=== PATIENT | male | born 1935 | race Caucasian/White ===

== ENCOUNTER 2019-01-04 16:31 | Emergency (ER) | payer MEDICARE ==
[2019-01-04 16:56] VITALS: BP 153/83
--- NOTE | 2019-01-04 17:24 | UC ---
Back Pain HPI - HPI Summary HPI Summary: PT reports L upper back pain near scapula that started today. cannot recall lifting something heavy or doing any repetitive movements. denies tingling/ numbness, chest pain, new sob, or mass/redness in area. worse w/ lifting his L arm, improved when he rests. reports a similar episode a few yrs back which was helped by PT. - History of Current Complaint Chief Complaint: UCBackPain Stated Complaint: BACK PAIN Time Seen by Provider: 01/04/19 17:21 Hx Obtained From: Patient Onset/Duration: Sudden Onset Pain Intensity: 10 Pain Scale Used: 0-10 Numeric Character: Sharp, Aching Aggravating Factor(s): Movement Alleviating Factor(s): Rest - Allergies/Home Medications Allergies/Adverse Reactions: Allergies Allergy/AdvReac Type Severity Reaction Status Date / Time No Known Allergies Allergy Verified 01/04/19 16:49 Home Medications: Home Medications Albuterol 2.5MG/3ML (0.083%)* [Ventolin 2.5 MG/3 ML NEB.KHOA*] 2.5 mg INH Q4H [History Confirmed 01/04/19] Budesonide/Formote 160/4.5(NF) [Symbicort 160/4.5 (NF)] 2 puff INH BID 01/04/19 [History Confirmed 01/04/19] Ipratropium HFA INHALER(NF) [Atrovent Hfa Inhaler(NF)] 2 puff INH Q6H 01/04/19 [ History Confirmed 01/04/19] Tamsulosin HCl [Flomax] 0.4 mg PO DAILY 01/04/19 [History Confirmed 01/04/19] Theophylline TAB* [Jose Dur*] 300 mg PO DAILY 01/04/19 [History Confirmed ] amLODIPine TAB* [Norvasc 5 mg TAB*] 5 mg PO DAILY 01/04/19 [History Confirmed ] guaiFENesin [Mucinex] 600 mg PO Q12HR PRN 01/04/19 [History Confirmed 01/04/19] traZODone TAB* [Desyrel TAB*] 50 mg PO BEDTIME 01/04/19 [History Confirmed 01/04] PMH/Surg Hx/FS Hx/Imm Hx Previously Healthy: Yes Respiratory History: COPD - SEVERE - Surgical History Surgical History: Yes Surgery Procedure, Year, and Place: appendectomy. hernia repair - Social History Alcohol Use: Weekly Substance Use Type: None Smoking Status (MU): Former Smoker Review of Systems All Other Systems Reviewed And Are Negative: Yes Constitutional: Positive: Negative Respiratory: Positive: Negative. Negative: Shortness Of Breath Cardiovascular: Positive: Negative Neurological: Negative: Headache, Weakness, Other - DENIES DIZZINESS Physical Exam Triage Information Reviewed: Yes Appearance: Well-Appearing Vital Signs: Initial Vital Signs Temp 98.8 F 01/04/19 16:47 Pulse 87 01/04/19 16:47 Resp 18 01/04/19 16:47 BP 153/83 01/04/19 16:47 Pulse Ox 99 01/04/19 16:47 Vital Signs Reviewed: Yes Neck: Negative: Nuchal Rigidity Respiratory: Positive: Lungs clear, Accessory muscle use - chronic w/ his severe copd, Other: - PURSE LIPPED BREATHING AND HAS o2 W/ HIM Cardiovascular Exam: Normal Musculoskeletal: Positive: Strength Intact - L arm, ROM Limited @ - L shoulder, no apprehension, Other: - somewhat tender between thoracic spine and scapula, pain reproducible Neurological: Positive: Alert Back Pain Course/Dx - Course Course Of Treatment: reproducible pain at L scapular area on upper back. xray did not demonstrate any bony abnormalities or changes in that area of the lung. thought to be bursa related. recommended incr. movement and short term nsaids. his breathign on exam appears to be chronic per family member that was w/ him. good O2. blood pressure elevated, should f/u w/ pcp. compared - Differential Dx/Diagnosis Differential Diagnosis/HQI/PQRI: Arthritis, Fracture, Strain, Sprain Provider Diagnosis: Scapulothoracic bursitis of left shoulder Discharge - Sign-Out/Discharge Documenting (check all that apply): Patient Departure All imaging exams completed and their final reports reviewed: Yes - Discharge Plan Condition: Good Disposition: HOME Patient Education Materials: Shoulder Bursitis (ED) Referrals: Yassine Garrett MD [Primary Care Provider] - Additional Instructions: Your blood pressure was elevated please follow up with your main doctor. - Billing Disposition and Condition Condition: GOOD Disposition: Home
== END 2019-01-04 18:33 | disposition home or self-care (01) ==
LOC: UCEAST 16:31
DX: M75.52 Bursitis of left shoulder (principal); J44.9 Chronic obstructive pulmonary disease, unspecified; Z87.891 Personal history of nicotine dependence
CPT/HCPCS: 99201; G0463

== ENCOUNTER 2019-01-17 08:02 | Emergency (ER) | payer MEDICARE ==
[2019-01-17] MEDS ORDERED: Aspirin 81 mg CHEW TAB* 81 MG TAB.CHEW ONE (08:16)
--- NOTE | 2019-01-17 08:16 | UC ---
[facility] General HPI - HPI Summary HPI Summary: Patient brought here by son. Son tried to get him to go to the ER last night but patient refused. Was able to convince him to go to urgent care this evening. States he developed chest pain and shortness of breath yesterday and persists today. No N/V/D. No fevers. Denies cough. No urinary symptoms. Normally he lives alone. Quit smoking 10 years ago. Substernal CP - 04/16. Son is here with him - son states he has been gasping for air c/o chest pain for the past two days. Also having some intermittent confusion. Denies any falls. Son states he is not safe to home alone and he can't take care of him. PMHx; COPD on 2L prn Meds: reviewed - History of Current Complaint Stated Complaint: SHORTNESS OF BREATHE Time Seen by Provider: 01/17/19 08:05 - Allergy/Home Medications Allergies/Adverse Reactions: Allergies Allergy/AdvReac Type Severity Reaction Status Date / Time No Known Allergies Allergy Verified 01/17/19 08:15 PMH/Surg Hx/FS Hx/Imm Hx Previously Healthy: No Cardiovascular History: Hypertension Respiratory History: COPD - Surgical History Surgical History: Yes Surgery Procedure, Year, and Place: appendectomy. hernia repair - Social History Alcohol Use: Weekly Substance Use Type: None Smoking Status (MU): Former Smoker Review of Systems All Other Systems Reviewed And Are Negative: Yes Constitutional: Positive: Negative Respiratory: Positive: Shortness Of Breath Cardiovascular: Positive: Chest Pain Physical Exam Triage Information Reviewed: Yes Appearance: Other: - mild respiratory distress Vital Signs Reviewed: Yes ENT: Positive: Normal ENT inspection Respiratory: Positive: Other: - Diminished breath sounds b/l. No wheezing. Increase in work of breathing and conversational dyspnea Cardiovascular: Positive: RRR, Other: - soft systolic murmur Abdomen Description: Positive: Nontender Musculoskeletal: Positive: Other: - trace edema Diagnostics - EKG Cardiac Rate: NL Course/Dx - Course Course Of Treatment: This is an 83 yr old with COPD on 2L who presents with two days of chest pain and shortness of breath. Assessment. Mild respiratory distress. Sats 90's on 2L's. Concern for cardiac etiology - EKG - NSR. Discussed with patient and son he needs to be transported via EMS to ER for evaluation for acute coronary syndrome. Patient agreeable. IV placed, NTG 04 mg SL and ASA 324 mg given. Sign out to Dr. Walker at [facility] given - Diagnoses Provider Diagnosis: Chest pain, Shortness of breath Discharge - Sign-Out/Discharge Documenting (check all that apply): Patient Departure All imaging exams completed and their final reports reviewed: No Studies - Discharge Plan Condition: Guarded Disposition: TRANS HIGHER LVL OF CARE FAC Referrals: Yassine Garrett MD [Primary Care Provider] - Additional Instructions: Patient going to [facility] via EMS - Billing Disposition and Condition Condition: GUARDED Disposition: Trans Higher Lvl of Care Fac
[2019-01-17] MEDS ORDERED: Nitroglycerin TAB 0.4 MG* 0.4 MG TAB ONE (08:17)
[2019-01-17] MEDS ORDERED: Aspirin TAB* 325 MG PO ONE (08:17)
[2019-01-17] MEDS ORDERED: Nitroglycerin TAB 0.4 MG* 0.4 MG TAB SL ONE (08:17)
[2019-01-17 08:25] VITALS: BP 188/80
== END 2019-01-17 08:44 | disposition short-term general hospital (02) ==
LOC: UCEAST 08:02
DX: R07.9 Chest pain, unspecified (principal); R06.02 Shortness of breath; I10 Essential (primary) hypertension; J44.9 Chronic obstructive pulmonary disease, unspecified; Z87.891 Personal history of nicotine dependence
CPT/HCPCS: 99213; A9270-GY; G0463

== ENCOUNTER 2019-01-17 08:54 | Inpatient (IN) | payer MEDICARE ==
--- NOTE | 2019-01-17 09:15 | ED ---
HPI Cardiac - HPI Summary HPI Summary: This pt is an 83 y/o male presenting to [facility] via EMS from [facility] for chest pain and SOB since yesterday. Pt describes chest pain radiating to his back. Denies fever, nausea, vomiting. Son reports pt makes gasping for air noise at baseline. Pt went to Urgent Care this morning where he had an EKG and was given Aspirin and Nitroglycerin TRAUMA COUNSELLOR. Pt was sent to the ED with labs drawn. Pt notes mild relief of chest pain after Nitroglycerin. Pt reports hx of COPD, on 2L of oxygen PRN. Denies hx of CHF. Pt is a former smoker. NKDA. - History of Current Complaint Stated Complaint: CHEST PAINS PER EMS Time Seen by Provider: 01/17/19 08:56 Hx Obtained From: Patient, Family/Plating Foreman - Son Onset/Duration: Started Hours Ago, Still Present Timing: Lasting Hours Current Severity: Moderate Pain Intensity: 6 Pain Scale Used: 0-10 Numeric Chest Pain Location: Mid Sternal Chest Pain Radiates: Yes Chest Pain Radiates To:: Back Character: Dull/Aching - Aching, Sharp/Stabbing - sharp Aggravating Factor(s): Nothing Alleviating Factor(s): Nothing Associated Signs and Symptoms: Positive: Chest Pain, Shortness of Breath. Negative: Fever, Nausea, Vomiting - Allergy/Home Medications Allergies/Adverse Reactions: Allergies Allergy/AdvReac Type Severity Reaction Status Date / Time No Known Allergies Allergy Verified 01/17/19 08:15 PMH/Surg Hx/FS Hx/Imm Hx Cardiovascular History: Reports: Hx Hypertension Denies: Hx Congestive Heart Failure, Hx Pacemaker/ICD Respiratory History: Reports: Hx Chronic Obstructive Pulmonary Disease (COPD) - Surgical History Surgery Procedure, Year, and Place: appendectomy. hernia repair Infectious Disease History: No Infectious Disease History: Denies: Traveled Outside the [place] in Last 30 Days - Family History Family History: Both parents of old age. Thyroid disease. - Social History Alcohol Use: Weekly Substance Use Type: Reports: None Hx Tobacco Use: Yes Smoking Status (MU): Former Smoker Review of Systems Negative: Fever Positive: Chest Pain Positive: Shortness Of Breath Negative: Vomiting, Nausea All Other Systems Reviewed And Are Negative: Yes Physical Exam - Summary Physical Exam Summary: GENERAL: Patient is a well-developed and nourished male. HEAD AND FACE: Normocephalic EYES: PERRLA, EOMI x 2. EARS: Hearing grossly intact. MOUTH: Oropharynx within normal limits. NECK: Supple, trachea is midline, no adenopathy, no JVD, no carotid bruit. CHEST: Symmetric, no tenderness at palpation LUNGS: Decreased air entry bilaterally. CVS: Regular rate and rhythm, S1 and S2 present, no murmurs or gallops appreciated. ABDOMEN: Soft, non-tender. Bowel sounds are normal. No abdominal abnormal pulsations. EXTREMITIES: Full ROM in all major joints, no edema, no cyanosis or clubbing. NEURO: Alert and oriented x 3. No acute neurological deficits. Speech is normal and follows commands. SKIN: Dry and warm Triage Information Reviewed: Yes Vital Signs On Initial Exam: Initial Vitals Temp Pulse Resp BP Pulse Ox 97.5 F 79 20 114/65 99 01/17/19 09:09 01/17/19 09:09 01/17/19 09:09 01/17/19 09:09 01/17/19 09:09 Vital Signs Reviewed: Yes Diagnostics - Vital Signs Vital Signs Temp Pulse Resp BP Pulse Ox 01/17/19 09:09 97.5 F 79 20 114/65 99 - Laboratory Result Diagrams: 01/17/19 08:20 01/17/19 08:20 Lab Statement: Any lab studies that have been ordered have been reviewed, and results considered in the medical decision making process. - Radiology Chest XR Radiology Interpretation Completed By: Radiologist Summary of Radiographic Findings: IMPRESSION: Hyperinflation. No active cardiopulmonary disease. Dr. Walker has reviewed this report. - EKG 0910 Cardiac Rate: NL - at 79 bpm EKG Rhythm: Sinus Rhythm Summary of EKG Findings: prolonged MD. Left axis deviation. Disposition - Course Assessment/Plan: Pt is an 83 y/o male presenting to [facility] via EMS from [facility] for chest pain and SOB since yesterday. Pt had an EKG and was given Aspirin and Nitro at Urgent Care TRAUMA COUNSELLOR. Chest XR shows hyperinflation. No active cardiopulmonary disease. Labs remarkable for INR of 1.12, total bilirubin of 1.2. In the ED course the pt was given IV fluids, Decadron, Duoneb, magnesium sulfate. Pt will be admitted. I discussed results with patient. The patient agrees with this plan. Discussed the case with Dr. Molina, hospitalist, who accepted the pt for admission. - Diagnoses Provider Diagnoses: COPD (chronic obstructive pulmonary disease), Chest pain - Physician Notifications Discussed Care Of Patient With: Priyanka Molina - hospitalist Time Discussed With Above Provider: 10:16 Instructed by Provider To: Admit As Inpatient Discharge - Sign-Out/Discharge Documenting (check all that apply): Patient Departure - Admit to [facility] Patient Received Moderate/Deep Sedation with Procedure: No - Discharge Plan Condition: Stable Disposition: ADMITTED TO [facility] - Billing Disposition and Condition Condition: STABLE Disposition: Admitted to [facility] - Attestation Statements Document Initiated by Scribe: Yes Documenting Scribe: Sharlene Alexander Provider For Whom Scribe is Documenting (Include Credential): Rowan Walker MD Scribe Attestation: Sharlene Batista scribed for Rowan Walker MD on 01/17/19 at 1648. Scribe Documentation Reviewed: Yes Provider Attestation: The documentation as recorded by the Sharlene pino accurately reflects the service I personally performed and the decisions made by Rowan davis MD Status of Scribe Document: Viewed
[2019-01-17] MEDS ORDERED: Magnesium Sulfate IV* 0.5 GM/ML 2 ML VIAL (1 GM) IVPB ONE (09:18)
[2019-01-17] MEDS ORDERED: Dexamethasone IV* 4 MG/ML 1 ML (4 MG) IV SLOW PU ONE (09:18)
[2019-01-17] MEDS ORDERED: Albuterol/Ipratropium NEB.SOL* Albuterol 2.5 MG/Ipratropium 0.5 MG 3 ML INH ONE (09:18)
[2019-01-17 09:19] LABS: ABS Basophils 0.1 10^3/ul (0-0.2); ABS Eosinophils 0.1 10^3/ul (0-0.6); ABS Lymphocytes 1.1 10^3/ul (1.0-4.8); ABS Monocytes 0.7 10^3/ul (0-0.8); ABS Neutrophils 7.4 10^3/ul (1.5-7.7); ABS Nucleated RBC 0 10^3/ul; Hematocrit 42 % (42-52); Lymphocyte % 11.4 %; Mean Corpuscular HGB Conc 34 g/dl (31-36); Mean Corpuscular Hemoglobin 30 pg (27-31); Mean Corpuscular Volume 88 fL (80-94); Mean Platelet Volume 8.2 fL (7.4-10.4); Nucleated Red Blood Cells % 0.1; Platelet Count 263 10^3/ul (150-450); Red Blood Count 4.73 10^6/ul (4.00-5.40); Red Cell Distribution Width 14 % (10.5-15); White Blood Count 9.3 10^3/ul (3.5-10.8)
[2019-01-17] MEDS ORDERED: NS 0.9% 1000 ML** 1,000 ML IV ONE (09:19)
[2019-01-17 09:35] LABS: Activated Partial Thrombo Time 30.8 seconds (26.0-36.3); Albumin 4.4 g/dL (3.2-5.2); Albumin/Globulin Ratio 1.7 (1-3); Calcium 9.8 mg/dL (8.6-10.3); EGFR Non-African American 92.5 (>60); Globulin 2.6 g/dL (2-4); INR 1.12 (0.77-1.02); Magnesium 1.9 mg/dL (1.9-2.7); Potassium 3.6 mmol/L (3.5-5.0); Total Bilirubin 1.2 mg/dL (0.2-1.0)
[2019-01-17 09:36] LABS: Troponin I 0.01 ng/mL (<0.04)
[2019-01-17] MEDS ORDERED: Magnesium Sulfate 2 GM IV* 2 GM/50 ML BAG ONE (09:54)
[2019-01-17] MEDS ORDERED: Albuterol/Ipratropium NEB.SOL* Albuterol 2.5 MG/Ipratropium 0.5 MG 3 ML INH PRN ×2 (10:24→14:18)
[2019-01-17] MEDS ORDERED: Albuterol 2.5 MG/3 ML NEB.SOL* (0.083%) INH PRN (12:29)
[2019-01-17] MEDS ORDERED: guaiFENesin ER TAB 600 MG PO PRN (12:29)
[2019-01-17] MEDS ORDERED: Albuterol/Ipratropium NEB.SOL* Albuterol 2.5 MG/Ipratropium 0.5 MG 3 ML INH SCH (13:00)
[2019-01-17] MEDS ORDERED: ED Azithromycn 500 mg/250 ml 500 MG/250 ML PREMIX.SET IVPB ONE (14:00)
--- NOTE | 2019-01-17 14:55 | HP ---
CC: Dr. Garrett; Dr. La Churchill, Pulmonology * ADMISSION HISTORY AND PHYSICAL: DATE OF ADMISSION: 01/17/19 PRIMARY CARE PROVIDER: Dr. Yassine Garrett. ATTENDING PHYSICIAN: Dr. Priyanka Mittal.* (DICTATED BY JYOTI GRANADOS, MIKE) CHIEF COMPLAINT: Shortness of breath. HISTORY OF PRESENT ILLNESS: This is a very pleasant 83-year-old male patient who presents to the emergency department after going to urgent care this morning with complaints of shortness of breath and chest pain. The patient's [id number] is at the bedside and states that her took the patient to Urgent Care this morning where he had an EKG. The patient again was complaining of chest pain and some shortness of breath. He was given aspirin and nitroglycerin and then sent to the emergency department for evaluation. Upon examination in the emergency department, the patient is persistently hypoxic. He does wear oxygen at home at night and p.r.n. However, he has been persistently hypoxic with increased work of breathing and continued chest pain. For these reasons, we have been asked to evaluate the patient for admission. PAST MEDICAL HISTORY: COPD and hypertension. PAST SURGICAL HISTORY: He had an appendectomy and hernia repair. MEDICATIONS: At home include: 1. Albuterol. 2. Guaifenesin 600 mg p.o. b.i.d. as needed. 3. Ventolin nebulizer 2.5 mg inhaled q.4 hours as needed. 4. Trazodone 50 to 150 mg p.o. at bedtime. 5. Anoro Ellipta 1 puff inhaled daily. 6. Theophylline 300 mg p.o. q.12 hours. 7. Flomax 0.4 mg p.o. daily. 8. Hydroxyzine 25 mg p.o. t.i.d. 9. Atrovent inhaler 2 puffs inhaled q.6 hours as needed. 10. Carlin 1 tab p.o. q.8 hours as needed. 11. Amlodipine 5 mg daily. 12. Symbicort inhaler 160/4.5 two puffs inhaled b.i.d. 13. ProAir RespiClick 2 puffs inhaled q.4 hours as needed. ALLERGIES: The patient has no known drug allergies. FAMILY HISTORY: Brother with an AR and mother with thyroid disease. SOCIAL HISTORY: The patient reports he was a former smoker. Denies any current tobacco abuse. Denies any illicit drug use. Does use alcohol weekly, although his [id number] says it may be more frequent than that. CODE STATUS: The patient is a full code. Healthcare proxy is his son. REVIEW OF SYSTEMS: The patient denies any fever. No fatigue or chills. He does report that his breathing is worse. He is feeling acutely short of breath and has intermittent chest pain that does not change with position, deep breath nor have any other further aggravating or alleviating factors. Denies nausea, vomiting. No abdominal pain. No urinary complaints. No further constitutional complaints. PHYSICAL EXAMINATION GENERAL: The patient is awake, alert, in mild distress. VITAL SIGNS: Blood pressure 145/73; heart rate between 84 at rest, 110 with ambulation; O2 saturation 88% on room air; 100% on 3 L nasal cannula; temperature is 97.5; respiratory rate ranging from 14 to 29, 14 at rest, 29 with ambulating. HEENT: The patient is atraumatic, normocephalic. PERRLA with nonicteric sclerae. Oral mucosa is dry. The patient is edentulous. Tongue is midline. NECK: Supple, nontender. No JVD noted. No carotid bruit auscultated. LUNGS: Severely diminished with a bilateral expiratory wheeze at the bases. He does have accessory muscle use and increased work of breathing overall. No rales or rhonchi noted. CARDIOVASCULAR: S1, S2 present. No murmurs, gallops, or rubs noted. Rate is currently mildly tachycardiac. ABDOMEN: Soft, nontender, and nondistended. Positive bowel sounds in all 4 quadrants. : Deferred. MUSCULOSKELETAL: There is no clubbing, no cyanosis, no pedal edema. He has +2 distal pulses. He has a steady gait and can ambulate unassisted. Gross motor and sensation are intact. NEUROLOGIC: He is currently grossly intact with no focal deficit. His daughter does report that he has had periods of confusion and forgetfulness at home. PSYCHIATRIC: He is cooperative and appropriate. LABORATORY DATA: WBCs 9.3, RBCs 4.73, hemoglobin 14, hematocrit 42, platelets 263. Sodium 138, potassium 3.6, chloride 98, CO2 31, BUN 12, creatinine 0.80, GFR is 92.5, glucose 96, lactic acid 1.2, calcium 9.8, magnesium 1.9, bilirubin 1.20, AST 22, ALT 20, alk phos 88. Troponin was negative at 0.01 x2. BNP is 30. Total protein 7.0, albumin 4.4, globulin 2.6, INR is 1.12. Chest x-ray dated 01/17/19 does not show any acute consolidation. There was hyperinflation and no active cardiopulmonary disease. IMPRESSION: This is an 83-year-old male patient with longstanding history of chronic obstructive pulmonary disease, oxygen dependent at home that presents to the emergency department with chest pain and increased work of breathing and respiratory distress. PLAN: The patient has been admitted to observation. DIAGNOSES: 1. Chronic obstructive pulmonary disease with acute exacerbation. The patient has already received dexamethasone in the emergency department and several nebulizers. We will continue him on DuoNebs q.4 hours, albuterol as needed, continue steroids with methylprednisolone 40 mg q.12 hours to start this evening. We will also continue him on his home inhalers and his theophylline. We will add azithromycin for antiinflammatory properties. The patient does not appear to have pneumonia, consolidation, or fever. However, he is very high risk at this point. We will also continue him on guaifenesin 1200 mg p.o. b.i.d. 2. For his history of hypertension, we will continue him on amlodipine 5 mg daily. 3. For his history of anxiety, the patient will be continued on hydroxyzine and trazodone. 4. Finally, the patient has a history of benign prostatic hypertrophy, he will be continued on his Flomax daily. We will be checking daily laboratories on him. I also think it would be warranted to ask Dr. Churchill to consult on the patient. He has not seen her in over a year and family is reporting that the patient has had increased oxygen use at home and over the past month, they have seen a steady decline in his respiratory function. 5. In terms of chest pain, it is very atypical and he does not have any history. Self reported history of coronary artery disease, however, he did receive nitroglycerin prior to arrival with some relief. At this point, I think doing an echocardiogram to evaluate left ventricular function and valves and then also placing him for a nuclear stress test tomorrow morning for baseline would be prudent. 6. Diet. The patient can have a heart-healthy diet with caffeine. He should be n.p.o. After midnight for his screening stress test tomorrow. 7. Ambulation with oxygen as tolerated. The rest of the patient's course will be determined by further diagnostics, laboratories, and any other input from other providers as warranted during this admission. TIME SPENT: Approximately 60 minutes interviewing the patient and family, developing admission plan of care. This plan of care has been discussed with Dr. Mittal who in agreement with this admission. JYOTI GRANADOS, MIKE [id number]/CPS #: [id number] [place]
[2019-01-17] MEDS ORDERED: Azithromycin IV(*) 500 MG in NS 0.9% 250 ML* 250 ML IVPB STA (15:19)
[2019-01-17] MEDS: Heparin VIAL(*) 5000 UNITS/ML VIAL (FIVE THOUSAND) SUBCUT SCH ×2 (15:32→22:16)
--- NOTE | 2019-01-17 19:57 | ECHO ---
Patient: ANTONIETA STOVER Rec#: [id number] : 1935 Date: 01/17/2019 Age: 83y Height: 185 cm / 72.8 in Weight: 82 kg / 180.7 lbs Sex: M BSA: 2.06 Room#: [facility] Admit Date#: 01/17/2019 Type: Inpatient Referring: Desi Beckwith Reading: Gladys Heck MD [employer] Associate: Francoise Vigil RDCS CC: Yassine Garrett MD Transthoracic Echocardiogram Indication: Chest pain BP: 135/112 HR: 87 Rhythm: NSR with PACs Findings History: Former smoker, COPD, HTN. Technical Comments: The study quality is fair. The study is technically limited due to the patient's history of COPD. Completed at 1530. Left Ventricle: The left ventricular chamber size is normal. Mild concentric left ventricular hypertrophy is observed. Left ventricular systolic function is at the lower limits of normal. The estimated ejection fraction is 50-55%. Abnormal left ventricular diastolic function is observed. Abnormal left ventricular diastolic filling is observed, consistent with impaired relaxation. Left Atrium: The left atrium is moderately dilated. Right Ventricle: Moderator Band present. The right ventricle is moderately dilated. The right ventricular global systolic function is mildly reduced. Right Atrium: The right atrial cavity size is normal. Aortic Valve: The aortic valve is trileaflet. The aortic valve leaflets are moderately thickened. Systolic excursion of the aortic valve cusps is reduced. There is a trace of aortic regurgitation. There is mild aortic stenosis. The mean gradient of the aortic valve is 8 mmHg. The peak instantaneous gradient of the aortic valve is 14 mmHg. The aortic valve area, by peak velocities, is calculated at 1.7 cm2. The aortic valve area, by VTI's, is calculated at 1.3 cm2. Mitral Valve: There is mitral annular calcification. The mitral valve leaflets are mildly thickened. There is trace to mild mitral regurgitation. There is borderline mitral stenosis. Tricuspid Valve: The tricuspid valve leaflets are normal. There is mild tricuspid regurgitation. The right ventricular systolic pressure is estimated at 22 mmHg. There is evidence that pulmonary hypertension may be underestimated. There is no tricuspid stenosis. Pulmonic Valve: The pulmonic valve appears normal. There is mild to moderate pulmonic regurgitation. based on subcostal images. There is no pulmonic stenosis. Pericardium: There is no significant pericardial effusion. Aorta: There is no dilatation of the ascending aorta. There is no dilatation of the aortic arch. The aortic root is normal in size. Pulmonary Artery: The main pulmonary artery appears normal. Venous: The inferior vena cava appears normal in size. There is a greater than 50% respiratory change in the inferior vena cava dimension. Conclusions The study quality is fair, technically limited due to the patient's history of COPD. Mild concentric left ventricular hypertrophy is observed. Normal global wall motion. The estimated ejection fraction is 50-55%. Abnormal left ventricular diastolic filling is observed, consistent with impaired relaxation. The right ventricle is moderately dilated. The right ventricular global systolic function is mildly reduced. There is a trace of aortic regurgitation. There is mild aortic stenosis. The mean gradient of the aortic valve is 8 mmHg. DI 0.42. The aortic valve area, by peak velocities, is calculated at 1.7 cm2, by VTI's is calculated at 1.3 cm2. There is trace to mild mitral regurgitation. MAC with borderline mitral stenosis. There is mild tricuspid regurgitation. The right ventricular systolic pressure is estimated at 22 mmHg, may be underestimated. There is mild to moderate pulmonic regurgitation based on subcostal images. No prior echo to compare available. Measurements Name Value Normal Range RVIDd (AP) 2D 3.2 cm (0.9 - 2.6) RVDdMajor (2D) 5.7 cm (2.2 - 4.4) RAd ISD 4CH 4.9 cm (3.4 - 4.9) RA (A4C)W 3.6 cm (2.9 - 4.6) IVSd (2D) 1.1 cm (0.6 - 1) LVPWd (2D) 1.1 cm (0.6 - 1) LVIDd (2D) 4 cm (3.6 - 5.4) LVIDs (2D) 3.6 cm - Aortic Annulus 1.9 cm (1.4 - 2.6) Ao root diameter (2D) 3.4 cm (2.1 - 3.5) Ascending Ao 3.3 cm (2.1 - 3.4) Aortic arch 2.6 cm (1.8 - 3.4) LA dimension (AP) 2D 4.1 cm (2.3 - 3.8) LAd ISD 4CH 4.5 cm (2.9 - 5.3) LA ISD 4CH W 4.4 cm (2.5 - 4.5) Name Value Normal Range LA ESV BP (A/L) index 42 ml/m2 - Name Value Normal Range MV E-wave Vmax 0.8 m/sec - MV deceleration time 250 msec - MV A-wave Vmax 1.2 m/sec - MV E:A ratio 0.6 ratio - LV septal e' Vmax 0.09 m/sec - LV lateral e' Vmax 0.08 m/sec - LV E:e' septal ratio 8.9 ratio - LV E:e' lateral ratio 10 ratio - Name Value Normal Range AV Vmax 1.9 m/sec - AV VTI 49 cm - AV peak gradient 14 mmHg - AV mean gradient 8 mmHg - LVOT diameter 2 cm - LVOT Vmax 1 m/sec - LVOT VTI 21 cm - LVOT peak gradient 4 mmHg - LVOT mean gradient 2 mmHg - DOI (VTI) 0.42 ratio - LYUBOV (continuity Vmax) 1.7 cm2 - LYUBOV (continuity VTI) 1.3 cm2 - NATALIYA Vmax 0.6 m/sec - Name Value Normal Range MV Vmax 1.4 m/sec - MV VTI 34 cm - MV peak gradient 8 mmHg - MV mean gradient 3 mmHg - MV PHT 106 msec - MVA (PHT) 2.1 cm2 - MVA (continuity VTI) 2 cm2 - Name Value Normal Range TR Vmax 2.2 m/sec - TR peak gradient 19 mmHg - RAP 3 mmHg - RVSP 22 mmHg - IVC diameter 2 cm - Name Value Normal Range PV Vmax 1.1 m/sec - PV peak gradient 5 mmHg -
[2019-01-17] MEDS: Mometasone/Formoter 200/5 MDI INH SCH (19:58)
[2019-01-17] MEDS: traZODone TAB* 50 MG TAB PO SCH (20:04)
[2019-01-17] MEDS: hydrOXYzine HCL TAB* 25 MG PO PRN (20:04)
[2019-01-17] MEDS: HYDROcodone/ACETAMIN 5-325 MG* 1 TAB PO PRN (20:05)
[2019-01-17] MEDS: guaiFENesin ER TAB 600 MG PO SCH (20:05)
[2019-01-17] MEDS: Theophylline TAB* 300 MG PO SCH (20:07)
[2019-01-17] MEDS: methylPREDNISolone SOD 40 MG* 1 ML VIAL IV SCH (20:08)
--- NOTE | 2019-01-17 20:32 | CONS ---
PULMONARY CONSULTATION REPORT: DATE OF CONSULT: 01/17/19 CONSULTATION REQUESTED BY: Desi Gordillo NP REASON FOR CONSULT: Evaluation of shortness of breath. HISTORY OF PRESENT ILLNESS: The patient is an 83-year-old male with history of COPD, history of degenerative disk disease, hypertension, who presents for evaluation of worsening shortness of breath and chest pain. The patient has been having worsening back pain recently. He has been taking Tylenol without much relief. Pain has significantly worsened and started affecting his breathing. The patient started having pain radiating to the front of the chest associated with shortness of breath. The patient was taken to the urgent care, had an EKG and subsequently was sent to the emergency room for further evaluation. The patient was found to be hypoxemic in the emergency room and was placed on supplemental oxygen. He normally wears oxygen at night at home and also as needed during the day. Given persistent hypoxemia and increased work of breathing and continued chest pain, he was admitted for further evaluation. The patient reports still continuing to have significant back pain. He has chronic back pain from degenerative disk disease; however, reports that this has been pretty worse now. The patient reports improvement in his breathing since the nebulizer and also with oxygen. The patient denies recent sick contacts. The patient denies fevers, chills, night sweats, loss of weight or appetite. Further evaluation included chest x-ray, which was personally reviewed by me - no evidence of acute airspace opacities. Evidence of significant hyperinflation was noted. PAST MEDICAL HISTORY: 1. COPD, on home O2. 2. Hypertension. 3. Degenerative disk disease. PAST SURGICAL HISTORY: 1. Appendectomy. 2. Hernia repair. MEDICATIONS: 1. Albuterol. 2. Guaifenesin. 3. Ventolin. 4. Trazodone. 5. Anoro. 6. Theophylline. 7. Flomax. 8. Hydroxyzine. 9. Atrovent. 10. Martin. 11. Amlodipine. 12. Symbicort. 13. ProAir. ALLERGIES: No known drug allergies. FAMILY HISTORY: Brother with ME and mother with thyroid disease. SOCIAL HISTORY: Former smoker. Denies current tobacco abuse, denies illicit drug abuse. Does use alcohol frequently. REVIEW OF SYSTEMS: All 14-systems reviewed as per HPI. PHYSICAL EXAM: The patient in mild distress secondary to pain, also is tachypneic. Vital Signs: Temperature 97.1, pulse 100 per minute, respiratory rate 16 per minute, O2 sat 100% on 2 L, blood pressure 152/62. HEENT: Pupils are equal and reactive to light. Mucous membranes moist. Lungs: Diminished air entry. No significant wheeze on auscultation. Cardiovascular: S1, S2 present, regular. Abdomen: Soft, nontender, nondistended. Bowel sounds present. Extremities: Normal range of motion. No edema. Skin: No rash or bruises. Neuro: Alert, awake, oriented x3. No focal deficits. DIAGNOSTIC STUDIES/LAB DATA: WBC count 9.3, hemoglobin 14, hematocrit 42, platelet count 263. Sodium 138, potassium 3.6, chloride 98, bicarb 31, BUN 12, creatinine 0.8. Troponins x3 negative. Chest x-ray performed on admission was personally reviewed by me. No evidence of hyperinflation with no acute airspace opacities. IMPRESSION/RECOMMENDATIONS: 83-year-old male with severe chronic obstructive pulmonary disease, on last PFT in August 2018 was found to have severe chronic obstructive pulmonary disease with FEV1 at 30% predicted and also severely decreased diffusion capacity at less than 20%. The patient with chronic degenerative disk disease with back pain that started to radiate and was significantly worse. He subsequently also started having shortness of breath. I think he was in mild chronic obstructive pulmonary disease exacerbation at this time. He does have diminished air entry which is at baseline for him. Does not have much wheeze on auscultation. Most likely cause for his worsening shortness of breath is due to significant pain. I do not think this is cardiac in nature. His T-bili is slightly elevated. I think he is a little bit decompensated given poor reserve at baseline; however, I do not suspect any cardiac etiology of the chest pain. However, given his risk factors, he is scheduled to have a stress test tomorrow. I would recommend optimal pain control, incentive spirometry and continue with nebulizers. Given his severe chronic obstructive pulmonary disease, he would require oxygen at baseline. He is however saturating 100% on 2 L. Does report symptomatic benefit. Can continue with current management. Will reassess in the morning. Thank you for allowing me to participate in the care of your patient. Will follow up with you. [id number]/[facility] #: [id number] [place]
[2019-01-18] MEDS: Melatonin 3 MG TAB PO PRN ×2 (03:29→21:28)
[2019-01-18] MEDS: Heparin VIAL(*) 5000 UNITS/ML VIAL (FIVE THOUSAND) SUBCUT SCH ×3 (05:19→21:30)
[2019-01-18 06:37] LABS: ABS Basophils 0 10^3/ul (0-0.2); ABS Eosinophils 0 10^3/ul (0-0.6); ABS Lymphocytes 0.8 10^3/ul (1.0-4.8); ABS Monocytes 0.4 10^3/ul (0-0.8); ABS Neutrophils 5.4 10^3/ul (1.5-7.7); ABS Nucleated RBC 0 10^3/ul; Eosinophil % 0 %; Hematocrit 37 % (42-52); Hemoglobin 12.3 g/dl (14.0-18.0); Lymphocyte % 12.2 %; Mean Corpuscular HGB Conc 34 g/dl (31-36); Mean Corpuscular Hemoglobin 29 pg (27-31); Mean Corpuscular Volume 87 fL (80-94); Nucleated Red Blood Cells % 0; Platelet Count 238 10^3/ul (150-450); Red Cell Distribution Width 14 % (10.5-15); White Blood Count 6.6 10^3/ul (3.5-10.8)
[2019-01-18 06:57] LABS: BUN/Creatinine Ratio 21.1 (8-20); EGFR African American 128.5 (>60); EGFR Non-African American 106.2 (>60); Potassium 4.4 mmol/L (3.5-5.0)
[2019-01-18] MEDS: methylPREDNISolone SOD 40 MG* 1 ML VIAL IV SCH (07:28)
[2019-01-18] MEDS: guaiFENesin ER TAB 600 MG PO SCH ×2 (07:28→21:28)
[2019-01-18] MEDS: Theophylline TAB* 300 MG PO SCH ×2 (07:29→21:27)
[2019-01-18] MEDS ORDERED: Aminophylline IV* 25 MG/ML 10 ML VIAL ONE (08:08)
[2019-01-18] MEDS ORDERED: Regadenoson* 0.4 MG/5 ML SYRINGE ONE (08:08)
[2019-01-18] MEDS ORDERED: Tamsulosin CAP* 0.4 MG PO SCH (09:00)
[2019-01-18] MEDS: Mometasone/Formoter 200/5 MDI INH SCH ×2 (09:18→21:15)
[2019-01-18] MEDS: NF:Umeclidin/Vilant 62.5 MDI 62.5/25 mcg 14 INH ELLIPTA DEVICE INH SCH (11:13)
--- NOTE | 2019-01-18 12:13 | PN ---
Subjective Date of Service: 01/18/19 Interval History: Spoke with pt and [id number]. Pt has had weakness and difficulty ambulating since Tuesday night, as well as SOB and chest pain. Currently, he denies CP, fever, abd pain. He denies SOB and states that he feels he is back to his baseline, although he has not ambulated yet. Pt is on home O2 at 2L day and night. Echo revealed diastolic dysfunction without evidence of HF; BNP was 30. Stress test revealed low risk. Objective Active Medications: Hydrocodone Bitart/Acetaminophen ([place] 5-325 Tab*) 1 tab PO Q8H PRN Albuterol (Ventolin 2.5 Mg/3 Ml Neb.Marisela*) 2.5 mg INH Q4H PRN Albuterol/Ipratropium (Duoneb (Albuterol 2.5 Mg/Ipratropium 0.5 Mg)) 1 neb INH [id number] AWAKE PRN Amlodipine Besylate (Norvasc Tab*) 5 mg PO DAILY [facility] Azithromycin (Zithromax Tab*) 500 mg PO DAILY [facility] Guaifenesin (Mucinex*) 1,200 mg PO BID [facility] Heparin Sodium (Porcine) (Heparin Vial(*)) 5,000 units SUBCUT Q8HR [facility] Hydroxyzine HCl (Atarax Tab*) 25 mg PO TID PRN Melatonin (Melatonin) 3 mg PO BEDTIME PRN Methylprednisolone Sodium Succinate (Solu-Medrol 40 Mg) 40 mg IV Q12H [place] Mometasone Furoate/Formoterol Fumar (Dulera 200/5 Mdi*) 2 puff INH BID [facility]; Protocol Tamsulosin HCl (Flomax Cap*) 0.4 mg PO DAILY [facility] Theophylline (Jose Dur*) 300 mg PO Q12HR [facility] Trazodone HCl (Desyrel Tab*) 50 mg PO BEDTIME [facility] Umeclidinium/Vilanterol (Anoro 62.5/25 Ellipta Device (Nf)) 1 inh INH DAILY [facility] Vital Signs: Temp Pulse Resp BP Pulse Ox 98.0 F 76 16 132/62 100 01/18/19 11:29 01/18/19 11:29 01/18/19 11:29 01/18/19 11:29 01/18/19 11:29 Oxygen Devices in Use Now: Nasal Cannula Appearance: Pt is sitting up in bed and appears in no acuted distress. Breathing is nonlabored. Eyes: No Scleral Icterus, PERRLA Ears/Nose/Mouth/Throat: NL Teeth, Lips, Gums, Clear Oropharnyx, Mucous Membranes Moist Neck: NL Appearance and Movements; NL JVP, Trachea Midline Respiratory: Symmetrical Chest Expansion and Respiratory Effort, - - Lung sounds decreased throughout b/l; no wheeze, rhonchi, rales Cardiovascular: NL Sounds; No Murmurs; No JVD, RRR, No Edema Abdominal: NL Sounds; No Tenderness; No Distention, No Hepatosplenomegaly Extremities: No Edema, No Clubbing, Cyanosis Neurological: Alert and Oriented x 3, NL Muscle Strength and Tone Result Diagrams: 01/18/19 06:05 01/18/19 06:05 Assess/Plan/Problems-Billing Assessment: Pt is an 83yom with PMHx COPD, HTN, DDD, BPH who presents with CP, SOB and was found to be in COPD exacerbation. - Patient Problems (1) COPD exacerbation Comment: -Decreased breath sounds throughout, without wheeze -Continue azithro, steroids (solu-medrol 40 q12h), nebs, flutter valve -Incentive spirometry (2) Weakness Comment: -Pt c/o difficulty with ambulation and feelings of weakness; strength in UE, LE 5/5 b/l -Up with assistance -PT/OT eval today (3) Chest pain Comment: -No CP today -Echo: EF 50-55%, LVH, diastolic dysfunction -Stress test: Low risk; no evidence of ischemia EKG portion (4) Hypertension Comment: -Continue amlodipine (5) Degenerative disc disease Comment: -Continue pain management (6) DVT prophylaxis Comment: -Heparin SQ (7) Full code status Status and Disposition: Observation. Discharge when stable.
[2019-01-18] MEDS: amLODIPine TAB* 5 MG PO SCH (12:42)
[2019-01-18] MEDS: Azithromycin TAB* 250 MG PO SCH (13:27)
--- NOTE | 2019-01-18 17:59 | PN ---
Progress Note - Progress Note Date of Service: 01/18/19 - Pulm f/u note Note: Pt seen and examined at bedside. Pt sitting up in chair. Reports improvement in SOB and back pain. Active Medications Generic Name Dose Route Start Last Admin Trade Name Freq PRN Reason Stop Dose Admin Hydrocodone Bitart/Acetaminophen 1 tab 01/17/19 12:29 01/17/19 20:05 [place] 5-325 Tab* PO 1 tab Q8H PRN Administration PAIN Albuterol 2.5 mg 01/17/19 12:29 Ventolin 2.5 Mg/3 Ml Neb.Marisela* INH Q4H PRN SHORTNESS OF BREATH Albuterol/Ipratropium 1 neb 01/17/19 14:18 Duoneb (Albuterol 2.5 Mg/Ipratropium 0.5 Mg) INH [id number] AWAKE PRN SOB/WHEEZING Amlodipine Besylate 5 mg 01/18/19 09:00 01/18/19 12:42 Norvasc Tab* PO Not Given DAILY [facility] Azithromycin 500 mg 01/18/19 13:00 01/18/19 13:27 Zithromax Tab* PO 500 mg DAILY [facility] Administration Guaifenesin 1,200 mg 01/17/19 21:00 01/18/19 07:28 Mucinex* PO 1,200 mg BID [facility] Administration Heparin Sodium (Porcine) 5,000 units 01/17/19 14:00 01/18/19 13:28 Heparin Vial(*) SUBCUT 5,000 units Q8HR [facility] Administration Hydroxyzine HCl 25 mg 01/17/19 12:29 01/17/19 20:04 Atarax Tab* PO 25 mg TID PRN Administration ANXIETY Melatonin 3 mg 01/18/19 00:54 01/18/19 03:29 Melatonin PO 3 mg BEDTIME PRN Administration SLEEP Methylprednisolone Sodium Succinate 40 mg 01/17/19 21:00 01/18/19 07:28 Solu-Medrol 40 Mg IV 40 mg Q12H [facility] Administration Mometasone Furoate/Formoterol Fumar 2 puff 01/17/19 21:00 01/18/19 09:18 Dulera 200/5 Mdi* INH Not Given BID [facility] Protocol Tamsulosin HCl 0.4 mg 01/18/19 09:00 01/18/19 07:28 Flomax Cap* PO 0.4 mg DAILY [facility] Administration Theophylline 300 mg 01/17/19 21:00 01/18/19 07:29 Jose Dur* PO 300 mg Q12HR [facility] Administration Trazodone HCl 50 mg 01/17/19 21:00 01/17/19 20:04 Desyrel Tab* PO 50 mg BEDTIME [facility] Administration Umeclidinium/Vilanterol 1 inh 01/18/19 09:00 01/18/19 11:13 Anoro 62.5/25 Ellipta Device (Nf) INH Not Given DAILY [facility] Vital Signs Temp Pulse Resp BP Pulse Ox 98.0 F 76 16 132/62 100 01/18/19 11:29 01/18/19 11:29 01/18/19 11:29 01/18/19 11:29 01/18/19 11:29 O/E: Pt in NAD HEENT: PERRLA, no JVD Lungs: Diminished air entry b/l CVS: S1, S2+, regular Abd: Soft, BS+ Ext: Normal ROM Skin: No rash Neuro: no focal deficits Laboratory Results - last 24 hr 01/18/19 01/18/19 06:05 06:05 WBC 6.6 RBC 4.20 Hgb 12.3 L Hct 37 L MCV 87 MCH 29 MCHC 34 RDW 14 Plt Count 238 MPV 8.0 Neut % (Auto) 81.3 Lymph % (Auto) 12.2 Hind[place] % (Auto) 6.4 Eos % (Auto) 0 Baso % (Auto) 0.1 Absolute Neuts (auto) 5.4 Absolute Lymphs (auto) 0.8 L Absolute Monos (auto) 0.4 Absolute Eos (auto) 0 Absolute Basos (auto) 0 Absolute Nucleated RBC 0 Nucleated RBC % 0 Sodium 139 Potassium 4.4 Chloride 103 Carbon Dioxide 32 Anion Gap 4 BUN 15 Creatinine 0.71 Est GFR ( Amer) 128.5 Est GFR (Non-Af Amer) 106.2 BUN/Creatinine Ratio 21.1 H Glucose 102 H Calcium 9.0 I/R; 83yom with PMHx COPD, HTN, DDD, BPH who presents with CP, SOB and was found to be in COPD exacerbation. Pt reprots improvement in sx today O2 requirements have decreased Will need to assess O2 requirements prior to d/c Pain mx for back pain c/w bronchodilators c/w steroid taper OOB to chair as tolerated PT/OT
[2019-01-18] MEDS ORDERED: NS 0.9% 1000 ML** 1,000 ML IV SCH (20:00)
[2019-01-18] MEDS: HYDROcodone/ACETAMIN 5-325 MG* 1 TAB PO PRN (20:00)
[2019-01-18] MEDS: traZODone TAB* 50 MG TAB PO SCH (21:28)
[2019-01-18] MEDS: hydrOXYzine HCL TAB* 25 MG PO PRN (21:28)
[2019-01-19] MEDS: Heparin VIAL(*) 5000 UNITS/ML VIAL (FIVE THOUSAND) SUBCUT SCH ×3 (05:04→21:53)
[2019-01-19 06:26] LABS: ABS Basophils 0 10^3/ul (0-0.2); ABS Eosinophils 0 10^3/ul (0-0.6); ABS Lymphocytes 0.6 10^3/ul (1.0-4.8); ABS Monocytes 0.3 10^3/ul (0-0.8); ABS Neutrophils 9.4 10^3/ul (1.5-7.7); ABS Nucleated RBC 0 10^3/ul; Eosinophil % 0 %; Hematocrit 38 % (36-46); Hemoglobin 13.1 g/dL (14.0-18.0); Lymphocyte % 6.1 %; Mean Corpuscular HGB Conc 34 g/dL (31-36); Mean Corpuscular Hemoglobin 30 pg (27-31); Mean Corpuscular Volume 87 fL (80-94); Nucleated Red Blood Cells % 0.1; Platelet Count 250 10^3/uL (150-450); Red Blood Count 4.41 10^6 /uL (4.18-5.48); Red Cell Distribution Width 14 % (10.5-15); White Blood Count 10.3 10^3/uL (3.5-10.8)
[2019-01-19 06:42] LABS: BUN/Creatinine Ratio 24.7 (8-20); Calcium 8.8 mg/dL (8.6-10.3); EGFR African American 124.5 (>60); EGFR Non-African American 102.9 (>60)
[2019-01-19] MEDS: Azithromycin TAB* 250 MG PO SCH (08:55)
[2019-01-19] MEDS: Theophylline TAB* 300 MG PO SCH ×2 (08:55→21:54)
[2019-01-19] MEDS: guaiFENesin ER TAB 600 MG PO SCH ×2 (08:55→21:54)
[2019-01-19] MEDS: NF:Umeclidin/Vilant 62.5 MDI 62.5/25 mcg 14 INH ELLIPTA DEVICE INH SCH (08:56)
[2019-01-19] MEDS: amLODIPine TAB* 5 MG PO SCH (08:56)
[2019-01-19] MEDS: methylPREDNISolone SOD 40 MG* 1 ML VIAL IV SCH ×3 (08:56→21:54)
[2019-01-19] MEDS: Mometasone/Formoter 200/5 MDI INH SCH ×2 (09:26→20:50)
--- NOTE | 2019-01-19 18:27 | PN ---
Subjective Date of Service: 01/19/19 Interval History: Resting in recliner. Patient requesting discharge. Continues to have mild shortness of breath, but reports he feels improved. Denies cp, palpitations, nausea, vomiting, diarrhea. Objective Active Medications: Hydrocodone Bitart/Acetaminophen ([place] 5-325 Tab*) 1 tab PO Q8H PRN PRN Reason: PAIN Last Admin: 01/18/19 20:00 Dose: 1 tab Albuterol (Ventolin 2.5 Mg/3 Ml Neb.Marisela*) 2.5 mg INH Q4H PRN PRN Reason: SHORTNESS OF BREATH Albuterol/Ipratropium (Duoneb (Albuterol 2.5 Mg/Ipratropium 0.5 Mg)) 1 neb INH [id number] AWAKE PRN PRN Reason: SOB/WHEEZING Amlodipine Besylate (Norvasc Tab*) 5 mg PO DAILY [facility] Last Admin: 01/19/19 08:56 Dose: 5 mg Azithromycin (Zithromax Tab*) 500 mg PO DAILY [facility] Last Admin: 01/19/19 08:55 Dose: 500 mg Guaifenesin (Mucinex*) 1,200 mg PO BID [facility] Last Admin: 01/19/19 08:55 Dose: 1,200 mg Heparin Sodium (Porcine) (Heparin Vial(*)) 5,000 units SUBCUT Q8HR [facility] Last Admin: 01/19/19 15:42 Dose: Not Given Hydroxyzine HCl (Atarax Tab*) 25 mg PO TID PRN PRN Reason: ANXIETY Last Admin: 01/18/19 21:28 Dose: 25 mg Sodium Chloride (Ns 0.9% 1000 Ml) 1,000 mls @ 75 mls/hr IV PER RATE [facility] Last Admin: 01/19/19 00:02 Dose: 75 mls/hr Melatonin (Melatonin) 3 mg PO BEDTIME PRN PRN Reason: SLEEP Last Admin: 01/18/19 21:28 Dose: 3 mg Methylprednisolone Sodium Succinate (Solu-Medrol 40 Mg) 40 mg IV Q12H [facility] Stop: 01/19/19 22:00 Last Admin: 01/19/19 08:56 Dose: 40 mg Mometasone Furoate/Formoterol Fumar (Dulera 200/5 Mdi*) 2 puff INH BID [facility]; Protocol Last Admin: 01/19/19 09:26 Dose: 2 puff Prednisone (Deltasone Tab*) 60 mg PO DAILY [facility] Tamsulosin HCl (Flomax Cap*) 0.4 mg PO BEDTIME [facility] Theophylline (Jose Dur*) 300 mg PO Q12HR [facility] Last Admin: 01/19/19 08:55 Dose: 300 mg Trazodone HCl (Desyrel Tab*) 50 mg PO BEDTIME [facility] Last Admin: 01/18/19 21:28 Dose: 50 mg Umeclidinium/Vilanterol (Anoro 62.5/25 Ellipta Device (Nf)) 1 inh INH DAILY [facility] Last Admin: 01/19/19 08:56 Dose: Not Given Vital Signs - 8 hr 01/19/19 01/19/19 11:05 15:32 Temperature 98.0 F 98.1 F Pulse Rate 86 95 Respiratory 20 20 Rate Blood Pressure 115/85 161/76 (mmHg) O2 Sat by Pulse 97 99 Oximetry Oxygen Devices in Use Now: Nasal Cannula Appearance: Comfortable Eyes: No Scleral Icterus Ears/Nose/Mouth/Throat: Clear Oropharnyx, Mucous Membranes Moist Neck: NL Appearance and Movements; NL JVP Respiratory: Symmetrical Chest Expansion and Respiratory Effort - Decreased aertion. Otherwise clear Cardiovascular: NL Sounds; No Murmurs; No JVD, RRR, No Edema Abdominal: NL Sounds; No Tenderness; No Distention Lymphatic: No Cervical Adenopathy Extremities: No Clubbing, Cyanosis Skin: No Rash or Ulcers Neurological: Alert and Oriented x 3 Nutrition: Taking PO's Result Diagrams: 01/19/19 06:03 01/19/19 06:03 Additional Lab and Data: Laboratory Results - last 24 hr 01/19/19 01/19/19 06:03 06:03 WBC 10.3 RBC 4.41 Hgb 13.1 L Hct 38 MCV 87 MCH 30 MCHC 34 RDW 14 Plt Count 250 MPV 8.0 Neut % (Auto) 91.0 Lymph % (Auto) 6.1 [place] % (Auto) 2.8 Eos % (Auto) 0 Baso % (Auto) 0.1 Absolute Neuts (auto) 9.4 H Absolute Lymphs (auto) 0.6 L Absolute Monos (auto) 0.3 Absolute Eos (auto) 0 Absolute Basos (auto) 0 Absolute Nucleated RBC 0 Nucleated RBC % 0.1 Sodium 136 Potassium 4.0 Chloride 101 Carbon Dioxide 29 Anion Gap 6 BUN 18 Creatinine 0.73 Est GFR ( Amer) 124.5 Est GFR (Non-Af Amer) 102.9 BUN/Creatinine Ratio 24.7 H Glucose 132 H Calcium 8.8 Microbiology and Other Data: . Assess/Plan/Problems-Billing Assessment: Pt is an 83yom with PMHx COPD, HTN, DDD, BPH who presents with CP, SOB and was found to be in COPD exacerbation. - Patient Problems (1) COPD exacerbation Comment: -Decreased breath sounds throughout, without wheeze -Continue azithro, steroids (solu-medrol 40 q12h changed to Prednisone 60 mg PO) , nebs, flutter valve -Incentive spirometry - Patient reports he only uses O2 at night, therefore, ambulatory O2 ordered. - Overnight pulse ox ordered also. (2) Chest pain Comment: -No CP today -Echo: EF 50-55%, LVH, diastolic dysfunction -Stress test: Low risk; no evidence of ischemia EKG portion (3) Full code status Current Visit: Yes Status: Acute Code(s): Z78.9 - OTHER SPECIFIED HEALTH STATUS SNOMED Code(s): 770845880 (4) Hypertension Comment: -Continue amlodipine (5) Weakness Comment: -PT/OT evaluating (6) DVT prophylaxis Comment: -Heparin SQ Status and Disposition: Observation. Discharge when stable. Attending: Sharlene Aguilar
[2019-01-19] MEDS ORDERED: Morphine 4 MG/ML VIAL (1 ml) 4 MG/ML VIAL ONE (19:27)
[2019-01-19] MEDS ORDERED: Morphine 4 MG/ML VIAL (1 ml) 4 MG/ML VIAL IV ONE (19:37)
[2019-01-19] MEDS ORDERED: Al Hydrox/Mg Hydrox/Simet LIQ* 30 ML UDC PO ONE (19:38)
[2019-01-19] MEDS ORDERED: Lidocaine 2% VISCOUS* 15 ML UDC PO ONE (19:38)
[2019-01-19] MEDS ORDERED: LORazepam INJ* 2 MG/ML 1 ML VIAL IV PUSH ONE (19:40)
[2019-01-19] MEDS ORDERED: Iohexol 350* (CONTRAST) 500 ML MDV IV ONE (19:48)
[2019-01-19] MEDS: Pantoprazole IV* 40 MG IV SCH (19:54)
[2019-01-19 20:31] LABS: Troponin I 0.01 ng/mL (<0.04)
[2019-01-19] MEDS ORDERED: Tamsulosin CAP* 0.4 MG PO SCH (21:00)
--- NOTE | 2019-01-19 21:48 | PN ---
Hospitalist Progress Note Date of Service: 01/19/19 Called to bedside by RN, patient desatting with severe SOB. Dropped to 83% on 6L NC. Patient is coughing and complaining of severe right chest and epigastric pain that "goes straight through". He is visibly uncomfortable and anxious with tachypnea. EKG shows sinus tachycardia with no ST segment changes. Labs drawn, trop and lipase negative, CXR with no further changes. Given GI cocktail, morphine and ativan. Patient was placed on oxymask with good effect. Patient appears more comfortable now. Sent for CTA chest to rule out PE given severity of pain and SOB. CTA is negative for PE, but it does show a T7 compression fracture. No retropulsion noted. The patient had stated that he felt he had sharp pains in the past that his doctor couldn't tell him why so he would take tylenol and rest. Given exacerbation of COPD and increased coughing, this fracture is likely exacerbated. Will order analgesics and request PT consultation.
[2019-01-19] MEDS ORDERED: Morphine 4 MG/ML VIAL (1 ml) 4 MG/ML VIAL IV PRN (21:50)
[2019-01-19] MEDS: traZODone TAB* 50 MG TAB PO SCH (21:54)
[2019-01-19] MEDS: HYDROcodone/ACETAMIN 5-325 MG* 1 TAB PO PRN (22:03)
[2019-01-19] MEDS: Benzonatate CAP* 100 MG PO SCH (23:01)
[2019-01-20] MEDS: Heparin VIAL(*) 5000 UNITS/ML VIAL (FIVE THOUSAND) SUBCUT SCH (05:43)
[2019-01-20] MEDS: Mometasone/Formoter 200/5 MDI INH SCH (08:23)
[2019-01-20] MEDS: Azithromycin TAB* 250 MG PO SCH (08:54)
[2019-01-20] MEDS: guaiFENesin ER TAB 600 MG PO SCH (08:54)
[2019-01-20] MEDS: Pantoprazole IV* 40 MG IV SCH (08:54)
[2019-01-20] MEDS: Benzonatate CAP* 100 MG PO SCH (08:54)
[2019-01-20] MEDS: amLODIPine TAB* 5 MG PO SCH (08:54)
[2019-01-20] MEDS: Theophylline TAB* 300 MG PO SCH (08:54)
[2019-01-20] MEDS ORDERED: predniSONE TAB* 20 MG PO SCH (09:00)
[2019-01-20 09:13] LABS: ABS Basophils 0 10^3/ul (0-0.2); ABS Eosinophils 0 10^3/ul (0-0.6); ABS Lymphocytes 0.8 10^3/ul (1.0-4.8); ABS Monocytes 0.4 10^3/ul (0-0.8); ABS Neutrophils 6.6 10^3/ul (1.5-7.7); ABS Nucleated RBC 0 10^3/ul; Eosinophil % 0 %; Hematocrit 39 % (36-46); Hemoglobin 13.2 g/dL (14.0-18.0); Lymphocyte % 10.2 %; Mean Corpuscular HGB Conc 34 g/dL (31-36); Mean Corpuscular Hemoglobin 30 pg (27-31); Mean Corpuscular Volume 88 fL (80-94); Mean Platelet Volume 7.9 fL (7.4-10.4); Nucleated Red Blood Cells % 0; Platelet Count 251 10^3/uL (150-450); Red Blood Count 4.44 10^6 /uL (4.18-5.48); Red Cell Distribution Width 14 % (10.5-15); White Blood Count 7.8 10^3/uL (3.5-10.8)
[2019-01-20 09:28] LABS: Calcium 9.1 mg/dL (8.6-10.3); EGFR African American 120.6 (>60); EGFR Non-African American 99.7 (>60); Magnesium 1.9 mg/dL (1.9-2.7); Potassium 3.9 mmol/L (3.5-5.0)
[2019-01-20] MEDS: NF:Umeclidin/Vilant 62.5 MDI 62.5/25 mcg 14 INH ELLIPTA DEVICE INH SCH (10:27)
--- NOTE | 2019-01-20 12:43 | DS ---
DISCHARGE SUMMARY: ADDENDUM: Given the patient's severe back pain due to coughing and shortness of breath and need for pain medication overnight, the patient will be sent home with a prescription for [place] . I have consulted the [facility] Prescription Monitoring Program Registry, reference number is [id number]. The only thing listed on this report is the patient received a 7-day supply of [place] on 01/09/19, which he would be out of if he has been using consistently. I will discuss with the patient to see if he has any at home and if not, I will send additional [place] as we know that patient can tolerate this. KRISHNA GALINDO, MIKE [id number]/[facility] #: [id number] MTDShirin
[2019-01-20 14:39] VITALS: BP 157/61
--- NOTE | 2019-01-20 16:23 | DS ---
ADDENDUM NOW INCLUDED ON THIS REPORT CC: Dr. Yassine Garrett; Dr. Churchill * DISCHARGE SUMMARY: DATE OF ADMISSION: 01/17/19 DATE OF DISCHARGE: 01/20/19 PRIMARY CARE PROVIDER: Dr. Yassine Garrett. ATTENDING PHYSICIAN: Dr. Russell * (dictated by Krishna Galindo NP). PRIMARY DIAGNOSES: 1. Chronic obstructive pulmonary disease exacerbation. 2. Chest pain. 3. Weakness. 4. Hypertension. CONSULTATIONS WHILE IN THE HOSPITAL: Dr. Churchill. PROCEDURES WHILE IN THE HOSPITAL: No procedures. STUDIES WHILE IN THE HOSPITAL: 1. Chest x-ray: Impression: Hyperinflation. No active cardiopulmonary disease. 2. EKG: Impression: Sinus rhythm, normal. 3. Transthoracic echo: Impression: Study quality is fair. Technically limited due to the patient's history of COPD. Mild concentric left ventricular hypertrophy is observed. Normal global wall motion. Estimated ejection fraction is 50% to 55%. Abnormal left ventricular diastolic filling is observed, consistent with impaired relaxation. Right ventricle is moderately dilated. Right ventricular global systolic function is mildly reduced. Trace aortic regurgitation. Mild aortic stenosis. Mean gradient of aortic valve of 8 mmHg. Aortic valve area, by peak velocity is calculated at 1.7 Sm2, by VTI is calculated at 1.3 cm2. Trace mitral regurgitation. MAC with borderline mitral stenosis. Mild tricuspid regurgitation. Right ventricular systolic pressure is estimated at 22 mmHg, medium estimated. [id number] pulmonic regurgitation based on subcostal images. No prior echo available for comparison. 4. Nuclear med scan, low risk; no evidence of ischemia on EKG portion. 5. Repeat chest x-ray obtained 01/19/19: Impression: No acute cardiopulmonary disease or acute findings. No change from comparison study. 6. CTA chest/thorax obtained 01/19/19: Impression: T7 compression fracture not present in February 2017. Cholelithiasis. No other acute findings, specifically no pulmonary embolism. DISCHARGE HOME MEDICATIONS: [place] Medications: 1. Prednisone taper. 2. Azithromycin 250 mg p.o. for 2 days. Continued Home Medications: 1. Mucinex 600 mg p.o. b.i.d. p.r.n. 2. Albuterol nebulizer 2.5 mg inhalation q.4 hours p.r.n. 3. Trazodone 50 to 150 mg p.o. at bedtime. 4. Anoro Ellipta 62.5/25 one puff inhalation daily. 5. Theophylline 300 mg p.o. q.12 hours. 6. Flomax 0.4 mg p.o. daily. 7. Atarax 25 mg p.o. t.i.d. p.r.n. 8. Atrovent HFA inhaler 2 puffs inhalation q.6 hours. 9. Bonsall 5/325 mg 1 tab p.o. q.8 hours p.r.n. 10. Amlodipine 5 mg p.o. daily. 11. Symbicort 160/4.5 two puffs inhalation b.i.d. 12. ProAir 2 puffs inhalation q.4 hours p.r.n. Discontinued home medications: No home medications discontinued. Changed Home Medications: No home medications changed. HISTORY OF PRESENT ILLNESS/HOSPITAL COURSE: Mr. Moses is an 83-year-old male who presented to the emergency department on 01/17/19 with complaints of shortness of breath and chest pain. Please see history and physical by Desi Gordillo NP, for complete summary of events leading up to hospitalization , but in short, the patient initially presented to the urgent care with these complaints and EKG was obtained. He was provided with aspirin and nitro and sent to the emergency department for further evaluation. While in the emergency room, the patient was noted to be hypoxic and requiring supplemental oxygen. It should be noted that the patient wears oxygen at home, but only at night. He also continued to have chest pain. For these reasons, the patient was admitted to Telemetry. While in the hospital, the patient was treated for suspected COPD exacerbation with azithromycin, steroids, nebulizers, flutter valve and supplemental oxygen. The patient initially required supplemental O2 during the day to maintain saturations, but is now maintaining saturations on room air during the day. The patient continued to need supplemental O2 at night , but this is his baseline. As for the chest pain, the patient is no longer experiencing chest pain. It should be noted that the patient had serial troponins, all of which were 0.01. The patient also had a stress test as mentioned above, which was low risk and showed no ischemic changes on EKG portion. The patient also had an echocardiogram as mentioned above. The patient has remained on telemetry and is in sinus rhythm with occasional PVCs. The patient should follow up with his primary care provider and possible referral to Cardiology. The patient was also mildly hypertensive, but has been maintained on his home medication of amlodipine and has been tolerating that well. The patient is currently normotensive. In addition, due to the patient' s significant COPD exacerbation, he was evaluated by Dr. Churchill, who agreed with a course of treatment. The patient's hospital stay was complicated as last evening he became severely short of breath. Oxygen saturation dropped to 83% on 6 L. He was complaining of severe right chest pain and epigastric pain. Per provider who evaluated, the patient was visibly uncomfortable. EKG was obtained and no ST changes. Labs were drawn including troponins, which were unremarkable. Chest x-ray showed no further changes. The patient was provided with an OxyMask with good effect. Due to the patient's constellation of symptoms, a CTA was obtained to rule out pulmonary embolism. CTA was negative for PE, but it should be noted that showed a T7 compression fracture. It was suspected that the patient's exacerbation of COPD and increasing coughing likely exacerbated pain from previous T7 compression fracture. Therefore, analgesic was ordered. The patient is free of pain today. The patient is stable for discharge home today. REVIEW OF SYSTEMS: A 14-point review of systems was completed and all were negative. PHYSICAL EXAMINATION: General: Mr. Moses is an 83-year-old man, who is sitting on the edge of the bed, appears in no acute distress, appears stated age. HEENT: EOMs intact. PERRLA. Oral mucosa is moist without lesions. Posterior pharynx is clear. Neck: Supple. No lymphadenopathy. Cardiac: S1, S2 present. No murmurs, rubs, or gallops. Regular rate and rhythm. Respiratory: Lung sounds are clear throughout. Mildly decreased air flow. No cough. No dyspnea. Abdomen: Soft, nontender. Bowel sounds x4. Extremities: No pain or deformities. No edema. No clubbing or cyanosis. Skin: Intact. Neuro: Neuro exam is grossly intact. No focal deficits or weakness. LABORATORY DATA: WBC 7.8, hemoglobin 13.2, hematocrit 39, platelets 251. Sodium 136, potassium 3.9, chloride 98, carbon dioxide 32, BUN 15, creatinine 0.75. Glucose 151, magnesium 1.9. DISCHARGE PLAN/FOLLOWUP: 1. Chronic obstructive pulmonary disease exacerbation: As mentioned above, the patient was treated for a chronic obstructive pulmonary disease exacerbation. The patient has improved greatly. The patient should continue azithromycin x2 days at 250 mg p.o. daily. The patient did receive 3 days of azithro while inpatient. The patient should continue steroid taper. The patient should continue home inhalers and nebulizers. The patient should follow up with Dr. Churchill in the next few weeks. It should also be noted that the patient did complete an overnight O2 study and it was noted that the patient requires oxygen overnight. The patient reports he wears it when he needs it. I have educated the patient at length he needs to wear oxygen every single night even if he feels he does not need it given his nocturnal hypoxia. The patient did have an ambulatory O2 completed by nurses and the patient sustained his oxygen on room air while walking in the unit x2. Therefore, it was decided that the patient does not currently need oxygen during the day. 2. Chest pain: The patient is free from chest pain today. The patient is also free from back pain. The patient has had unremarkable tele monitoring. As mentioned above, the patient had an echo. The patient also had a stress test , which was low risk and showed no evidence for ischemia on EKG portion. I would recommend the patient follow up with his primary care provider to review echo and decide whether or not a referral to Cardiology is necessary given his left ventricular hypertrophy and diastolic function. 3. Hypertension: The patient is currently on amlodipine. The patient is currently normotensive. The patient did have a few episodes of hypertension while admitted, but I suspect this due from his acute illness. The patient should follow up with his primary care in 1 to 2 weeks for reevaluation. 4. Weakness: The patient was initially very weak, which I suspect was due to his illness. The patient was evaluated by Physical Therapy on 01/18/19, observed to be independent in activities and not requiring any acute physical therapy needs. 5. Back Pain: Given patient's episode of back pain. I have consulted the [place] Prescription Monitoring Program Registry, reference number is [id number]. The only thing listed on this report is the patient received a 7- day supply of Bonsall on 01/09/19. Per nursing he reports he still has some at home, therefore, a new prescription was not sent at this time. If he needs additional pain medications he was encouraged to follow up with his Primary Care Provider 5. Followup: As mentioned above, the patient to follow up with his primary care provider in 1 to 2 weeks. I have also instructed the patient to follow up with Dr. Churchill in the next few weeks. The patient will also be set up with visiting nurse services to assist the patient with his current illness, medication management, oxygen saturation management. EDUCATION: The patient was instructed at length about signs and symptoms of new worsening condition, when to return to the emergency department. The patient states understanding. This is a summarized report of a complex medical history and hospital stay. For further details, please see the entire medical record. TIME SPENT: Approximately 35 minutes were spent on this discharge, greater than half that time was spent [id number] with the patient discussing discharge plan and instructions. PLAN: This plan was also discussed with my attending, Dr. Russell, who agrees with my plan. KRISHNA GALINDO NP ADDENDUM: KRISHNA GALINDO NP [id number]/CPS #: [id number] #: [id number] 01/20/19 1213 MTDShirin
== END 2019-01-20 14:50 | disposition home health service (06) | DRG 191 ==
LOC: ED 08:54 → EDHOLD 10:18 → MEDTELE 13:27 → OBSVTOIN 01-19 15:38
PROVIDERS: ADMIT Internal Medicine; ATTEND Internal Medicine
PROC: 4A02XM4 Measurement of Cardiac Total Activity, External Approach (ICD-10-PCS; principal; 2019-01-18)
DX: J44.1 Chronic obstructive pulmonary disease with (acute) exacerbation (principal); M48.54XA Collapsed vertebra, not elsewhere classified, thoracic region, initial encounter for fracture; R07.9 Chest pain, unspecified; I10 Essential (primary) hypertension; F41.9 Anxiety disorder, unspecified; N40.0 Benign prostatic hyperplasia without lower urinary tract symptoms; G89.29 Other chronic pain; M54.9 Dorsalgia, unspecified; R53.1 Weakness; I08.3 Combined rheumatic disorders of mitral, aortic and tricuspid valves; I49.3 Ventricular premature depolarization; K80.20 Calculus of gallbladder without cholecystitis without obstruction; R09.02 Hypoxemia; Z82.49 Family history of ischemic heart disease and other diseases of the circulatory system; Z83.49 Family history of other endocrine, nutritional and metabolic diseases; Z72.89 Other problems related to lifestyle; Z79.51 Long term (current) use of inhaled steroids; Z87.891 Personal history of nicotine dependence
CPT/HCPCS: 36415; 71045; 71275; 78452; 80048; 80053; 83605; 83690; 83735; 83880; 84484; 85025; 85379; 85610; 85730; 93005; 93017; 93306; 93351; 94640; 94762; 99283; A9270-GY; A9502; G0378; G8978-GP-CH; G8979-GP-CH; G8980-GP-CH; G8987-GO-CI; G8988-GO-CI; G8989-GO-CI; J0280; J0456; J1100; J1644; J2060; J2270; J2785; J2920; J3475; J7512; Q9967

== ENCOUNTER 2021-11-14 21:02 | Inpatient (IN) ==
[2021-11-14 22:01] LABS: ABS Lymphocytes 0.2 10^3/ul (1.0-4.8); ABS Monocytes 0.7 10^3/ul (0-0.8); ABS Neutrophils 18.3 10^3/ul (1.5-7.7); Eosinophil % 0.1 %; Hematocrit 41 % (42-52); Hemoglobin 13.8 g/dL (14.0-18.0); Lymphocyte % 1.3 %; Mean Corpuscular HGB Conc 33 g/dL (31-36); Mean Corpuscular Hemoglobin 30 pg (27-31); Mean Corpuscular Volume 89 fL (80-94); Mean Platelet Volume 8.2 fL (7.4-10.4); Platelet Count 263 10^3/uL (150-450); Red Blood Count 4.67 10^6 /uL (4.18-5.48); Red Cell Distribution Width 14 % (10-15); White Blood Count 19.3 10^3/uL (3.5-10.8)
[2021-11-14 22:10] LABS: ALT 20 U/L (7-52); AST 24 U/L (13-39); Albumin/Globulin Ratio 1.4 (1-3); Alkaline Phosphatase 100 U/L (35-149); Blood Urea Nitrogen 17 mg/dL (6-24); Calcium 9.1 mg/dL (8.6-10.3); Chloride 81 mmol/L (101-111); Globulin 2.8 g/dL (2-4); Glucose 175 mg/dL (70-100); Potassium 3.3 mmol/L (3.5-5.0); Sodium 126 mmol/L (135-145); Total Protein 6.8 g/dL (6.4-8.9); eGFR CKD-EPI 92.8 (>60)
[2021-11-14 22:33] LABS: Anion Gap 6 mmol/L (2-11); CO2 Carbon Dioxide 39 mmol/L (22-32)
[2021-11-14 22:34] LABS: Troponin I 0.04 ng/mL (<0.03)
[2021-11-14] MEDS ORDERED: cefTRIAXone 1 gm/50 mL NS BAG 1 GM/50 ML BAG IV ONE (22:58)
[2021-11-14] MEDS ORDERED: Azithromycin 500 mg/250 ml NS 500 MG/250 ML BAG IVPB ONE (22:58)
[2021-11-14] MEDS ORDERED: Potassium Chlor 20 meq TAB.ER PO ONE (23:08)
[2021-11-14] MEDS ORDERED: HYDROcodone/ACETAMIN 5/325 mg TAB PO PRN (23:11)
[2021-11-14] MEDS ORDERED: Al Hydrox/Mg Hydrox/Simet LIQ 30 ML UDC PO PRN (23:13)
[2021-11-14] MEDS ORDERED: NS 0.9% 1000 ml BAG 1,000 ML IV SCH (23:15)
[2021-11-15] MEDS: methylPREDNISolone SOD 40 mg/ml 1 ml VIAL IV SCH ×3 (02:07→16:56)
[2021-11-15] MEDS: Albuterol HFA INHALER 8 gm MDI INH PRN ×2 (04:49→09:47)
[2021-11-15 06:06] LABS: ABS Eosinophils 0.1 10^3/ul (0-0.6); ABS Lymphocytes 0.1 10^3/ul (1.0-4.8); ABS Monocytes 0.3 10^3/ul (0-0.8); ABS Neutrophils 16.7 10^3/ul (1.5-7.7); Eosinophil % 0.3 %; Hematocrit 44 % (42-52); Hemoglobin 14.7 g/dL (14.0-18.0); Lymphocyte % 0.9 %; Mean Corpuscular HGB Conc 34 g/dL (31-36); Mean Corpuscular Hemoglobin 30 pg (27-31); Mean Corpuscular Volume 89 fL (80-94); Platelet Count 214 10^3/uL (150-450); Red Blood Count 4.89 10^6 /uL (4.18-5.48); Red Cell Distribution Width 14 % (10-15); White Blood Count 17.2 10^3/uL (3.5-10.8)
[2021-11-15 06:31] LABS: Anion Gap 5 mmol/L (2-11); Blood Urea Nitrogen 17 mg/dL (6-24); CO2 Carbon Dioxide 36 mmol/L (22-32); Calcium 9.1 mg/dL (8.6-10.3); Chloride 84 mmol/L (101-111); Glucose 121 mg/dL (70-100); Potassium 4.4 mmol/L (3.5-5.0); Sodium 125 mmol/L (135-145); eGFR CKD-EPI 98.2 (>60)
[2021-11-15 06:58] LABS: Troponin I 0.07 ng/mL (<0.03)
[2021-11-15] MEDS ORDERED: Albuterol/Ipratropium NEB.SOL (2.5/0.5 MG) 3 ML NEB.SOLN INH SCH ×2 (07:00→12:00)
[2021-11-15] MEDS ORDERED: Umeclidin/Vilant 62.5 MDI 62.5/25 mcg 14 INH ELLIPTA DEVICE INH SCH (09:00)
[2021-11-15] MEDS ORDERED: NS 0.9% 1000 ml BAG 1,000 ML IV SCH (09:45)
[2021-11-15] MEDS: Heparin 5000 UNITS/ML 1 mL VIAL SUBCUT SCH ×2 (09:53→21:42)
[2021-11-15] MEDS: DOXYcycline 100 MG in NS 0.9% 250 ml 250 ML IVPB SCH (09:53)
[2021-11-15 10:27] LABS: Troponin I 0.08 ng/mL (<0.03)
[2021-11-15] MEDS ORDERED: Furosemide 40 mg/4 ml IV VIAL IV SLOW PU ONE (11:35)
[2021-11-15] MEDS ORDERED: Furosemide 40 mg/4 ml IV VIAL ONE (11:44)
[2021-11-15] MEDS ORDERED: Albuterol HFA INHALER 8 gm MDI INH SCH (14:00)
[2021-11-15 14:21] LABS: PO2 Arterial 85 mmHg (80-100)
[2021-11-15 14:30] LABS: PCO2 Arterial 116 mmHg (35-45)
[2021-11-15] MEDS ORDERED: Albuterol HFA INHALER 8 gm MDI INH PRN (14:33)
[2021-11-15 14:50] LABS: Troponin I 0.09 ng/mL (<0.03)
[2021-11-15] MEDS ORDERED: Albuterol 2.5mg/3 ml (0.083%) NEB.SOLN INH ONE (16:32)
[2021-11-15] MEDS: Albuterol 2.5mg/3 ml (0.083%) NEB.SOLN INH SCH ×2 (16:32→20:13)
[2021-11-15] MEDS: SPIRIVA Respimat (tiotropium) 2.5 mcg/inh Inhaler INH SCH (20:08)
[2021-11-15] MEDS ORDERED: Morphine 2 MG/ML SYRINGE IV PRN (20:35)
[2021-11-15] MEDS ORDERED: cefTRIAXone 1 gm/50 mL NS BAG 1 GM/50 ML BAG IVPB SCH (21:00)
[2021-11-15 22:18] LABS: Urine Osmo 386 mOsm/kg (150-1150)
[2021-11-15 22:21] LABS: Urine Creatinine Concentration 52.9 mg/dL
[2021-11-16] MEDS: methylPREDNISolone 125 mg 2 ML VIAL IV SCH ×3 (00:02→17:31)
[2021-11-16] MEDS: DOXYcycline 100 MG in NS 0.9% 250 ml 250 ML IVPB SCH ×3 (00:03→12:09)
[2021-11-16] MEDS: Albuterol 2.5mg/3 ml (0.083%) NEB.SOLN INH SCH ×5 (00:22→15:43)
[2021-11-16] MEDS: methylPREDNISolone SOD 40 mg/ml 1 ml VIAL IV SCH (02:26)
[2021-11-16 05:06] LABS: Hematocrit 41 % (42-52); Hemoglobin 13.8 g/dL (14.0-18.0); Mean Corpuscular HGB Conc 34 g/dL (31-36); Mean Corpuscular Hemoglobin 30 pg (27-31); Mean Corpuscular Volume 90 fL (80-94); Mean Platelet Volume 8.3 fL (7.4-10.4); Platelet Count 205 10^3/uL (150-450); Red Cell Distribution Width 15 % (10-15); White Blood Count 24.7 10^3/uL (3.5-10.8)
[2021-11-16 05:22] LABS: Calcium 8.9 mg/dL (8.6-10.3); Magnesium 1.6 mg/dL (1.9-2.7); Potassium 4.7 mmol/L (3.5-5.0)
[2021-11-16 05:27] LABS: eGFR CKD-EPI 94.1 (>60)
[2021-11-16 05:40] LABS: Basophilic Stippling 1+
[2021-11-16 05:41] LABS: ABS Basophils 0.1 10^3/ul (0-0.2); ABS Eosinophils 0.1 10^3/ul (0-0.6); ABS Lymphocytes 0.2 10^3/ul (1.0-4.8); ABS Monocytes 0.4 10^3/ul (0-0.8); Eosinophil % 0.4 %; Lymphocyte % 0.9 %
[2021-11-16] MEDS: SPIRIVA Respimat (tiotropium) 2.5 mcg/inh Inhaler INH SCH (08:04)
[2021-11-16] MEDS ORDERED: Magnesium Sulfate IV 3 GM in NS 0.9% 100 ml BAG 100 ML IVPB ONE (08:27)
[2021-11-16] MEDS: Heparin 5000 UNITS/ML 1 mL VIAL SUBCUT SCH (09:35)
[2021-11-16 11:41] LABS: PO2 Arterial 80 mmHg (80-100)
[2021-11-16 11:48] LABS: PCO2 Arterial > 121 mmHg (35-45)
[2021-11-16] MEDS ORDERED: Lorazepam PYXIS KEY PRN (17:24)
[2021-11-16] MEDS ORDERED: LORazepam 2 mg VIAL 1 ml IV PUSH PRN (17:35)
[2021-11-16] MEDS ORDERED: Morphine 2 MG/ML SYRINGE ONE (17:52)
[2021-11-16] MEDS ORDERED: Morphine 2 MG/ML SYRINGE IV PRN (17:52)
[2021-11-16] MEDS ORDERED: LORazepam 2 mg VIAL 1 ml IV PUSH ONE (19:00)
[2021-11-16] MEDS ORDERED: Morphine 10 MG/ML VIAL (1 ml) IV ONE (19:00)
[2021-11-16] MEDS ORDERED: Lorazepam PYXIS KEY ONE (19:42)
[2021-11-16 20:16] VITALS: BP 103/51
== END 2021-11-17 09:28 | disposition expired | DRG 871 ==
LOC: ED 21:02 → MEDTELE 23:13 → SUATTDRO 23:13 → ICU 11-15 14:43
PROVIDERS: ADMIT Internal Medicine; ATTEND Surgery Surgical Critical Care